=== PATIENT | male | born 1960 | race Caucasian/White ===

== ENCOUNTER 2017-05-10 21:03 | Inpatient (IN) | payer OTHER ==
[~2017-05-10] VITALS: Ht 365.8 cm; Wt 98.5 kg
[2017-05-11] VITALS (9 sets, daily range): BP systolic 120–127; BP diastolic 70–82; PULSE 43–63; RESP 18–20; TEMP 98.3; Ht 365.8 cm; Wt 98.5 kg
[2017-05-11] MEDS ORDERED: ASPIRIN 325 MG TAB PO STA (01:00)
[2017-05-11] MEDS ORDERED: SOD CHLORIDE 0.9% 500 ML IV STA (01:00)
[2017-05-11 01:48] LABS: BASOPHIL # 0.1 10^3/ul (0.0-0.1); BASOPHILS % 0.7 % (0.0-2.0); EOSINOPHILS # 0.2 10^3/ul (0.0-0.5); EOSINOPHILS % 2.3 % (0.0-7.0); HEMATOCRIT 48.4 % (42.0-52.0); HEMOGLOBIN 15.5 g/dl (14.0-18.0); LYMPHOCYTES # 3.4 10^3/ul (0.8-2.9); MEAN CORPUSCULAR HEMOGLOBIN 26.7 pg (29.0-33.0); MEAN CORPUSCULAR VOLUME 83.3 fl (82.0-101.0); MONOCYTE # 0.5 10^3/ul (0.3-0.9); MONOCYTES % 6.3 % (0.0-11.0); NEUTROPHIL # 3.4 10^3/ul (1.6-7.5); NEUTROPHILS % 45.4 % (39.0-77.0); PLATELET COUNT 218 10^3/UL (140-415); RED BLOOD COUNT 5.81 10^6/ul (4.70-6.10); RED CELL DISTRIBUTION WIDTH 13.2 % (11.5-14.5); WHITE BLOOD COUNT 7.4 10^3/ul (4.8-10.8)
--- NOTE | 2017-05-11 01:52 | RADRPT ---
PROCEDURE: XR Chest. CLINICAL INDICATION: Chest pain. TECHNIQUE: Single frontal view of the chest. COMPARISON: None. FINDINGS: The cardiomediastinal silhouette is within normal limits. The lungs are clear. No signs of pleural f luid or pneumothorax are seen. The osseous structures and soft tissues are unremarkable. IMPRESSION: No evidence for active cardiopulmonary disease. RPTAT: [facility] Physician Khalida Date Time Electronically viewed and signed by Physician Khalida on 05/11/2017 01:51 RS/
[2017-05-11 02:03] LABS: ALBUMIN 4.3 g/dl (3.3-4.9); ALBUMIN/GLOBULIN RATIO 1.43; BILIRUBIN,INDIRECT 0.2 mg/dl (0-1.1); BILIRUBIN,TOTAL 0.2 mg/dl (0.2-1.3); CALCIUM 9.9 mg/dl (8.4-10.2); CREATININE 0.89 mg/dl (0.61-1.24); POTASSIUM 3.8 mmol/L (3.5-5.1); TOTAL PROTEIN 7.3 g/dl (6.1-8.1)
[2017-05-11 02:21] LABS: TROPONIN-I 0.014 ng/ml (0.00-0.12)
--- NOTE | 2017-05-11 05:33 | ERA ---
ER Documentation Chief Complaint Date/Time DATE: 05/11/17 TIME: 05:31 Chief Complaint chest pain w/ sob since 2 hrs ago during exercise in gym, w/ stent HPI This is a 56-year-old male who comes in with chest pain shortness breath since 2 hours ago. He developed chest pain while exercising at the gym. He was also short of breath. Complains of diaphoresis. 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 No fevers or chills. No other current complaints. ROS All systems reviewed and are negative except as per history of present illness. Allergies Allergies: Coded Allergies: No Known Allergy (Unverified , 01/12/16) PMhx/Soc History of Surgery: Yes Anesthesia Reaction: No Hx Neurological Disorder: No Hx Respiratory Disorders: No Hx Cardiac Disorders: Yes (mi in 2009, stent placed) Hx Psychiatric Problems: No Hx Miscellaneous Medical Probl: No Hx Alcohol Use: Yes (social) Hx Substance Use: No Hx Tobacco Use: No Smoking Status: Never smoker Physical Exam Vitals Vital Signs Date Time Temp Pulse Resp B/P Pulse Ox O2 Delivery O2 Flow Rate FiO2 05/11/17 00:49 98.1 50 18 129/87 98 05/10/17 21:06 98.2 61 20 153/75 97 Physical Exam Const: [] Head: Atraumatic Eyes: Normal Conjunctiva ENT: Normal External Ears, Nose and Mouth. Neck: Full range of motion..~ No meningismus. Resp: Clear to auscultation bilaterally Cardio: Regular rate and rhythm, no murmurs Abd: Soft, non tender, non distended. Normal bowel sounds Skin: No petechiae or rashes Back: No midline or flank tenderness Ext: No cyanosis, or edema Neur: Awake and alert Psych: Normal Mood and Affect Result Diagram: 05/11/17 0100 05/11/17 0100 Results 24 hrs Laboratory Tests Test 05/11/17 01:00 White Blood Count 7.410^3/ul Red Blood Count 5.8110^6/ul Hemoglobin 15.5g/dl Hematocrit 48.4% Mean Corpuscular Volume 83.3fl Mean Corpuscular Hemoglobin 26.7pg Mean Corpuscular Hemoglobin Concent 32.0g/dl Red Cell Distribution Width 13.2% Platelet Count 00144^3/UL Mean Platelet Volume 11.0fl Neutrophils % 45.4% Lymphocytes % 45.0% Monocytes % 6.3% Eosinophils % 2.3% Basophils % 0.7% Nucleated Red Blood Cells % 0.0/100WBC Neutrophils # 3.410^3/ul Lymphocytes # 3.410^3/ul Monocytes # 0.510^3/ul Eosinophils # 0.210^3/ul Basophils # 0.110^3/ul Nucleated Red Blood Cells # 0.010^3/ul Sodium Level 139mmol/L Potassium Level 3.8mmol/L Chloride Level 103mmol/L Carbon Dioxide Level 29mmol/L Anion Gap 11 Blood Urea Nitrogen 22mg/dl Creatinine 0.89mg/dl Glucose Level 99mg/dl Calcium Level 9.9mg/dl Total Bilirubin 0.2mg/dl Direct Bilirubin 0.00mg/dl Indirect Bilirubin 0.2mg/dl Aspartate Amino Transf (AST/SGOT) 59IU/L Alanine Aminotransferase (ALT/SGPT) 54IU/L Alkaline Phosphatase 61IU/L Troponin I 0.014ng/ml B-Type Natriuretic Peptide 30PG/ML Total Protein 7.3g/dl Albumin 4.3g/dl Globulin 3.00g/dl Albumin/Globulin Ratio 1.43 Current Medications Medications (Trade) Dose Ordered Sig/Lei Route PRN Reason Start Time Stop Time Status Last Admin Dose Admin Sodium Chloride (NS) 500 ml @ 500 mls/hr Q1H STAT IV 05/11/17 01:00 05/11/17 01:59 DC 05/11/17 01:26 Aspirin (Aspirin) 325 mg ONCE STAT PO 05/11/17 01:00 05/11/17 01:01 DC 05/11/17 01:25 Procedures/MDM EKG: Rate/Rhythm: [Normal Sinus Rhythm] QRS, ST, T-waves: [No changes consistent w/ acute ischemia] Impression: [No evidence of ischemia or arrhythmia] Chest X-ray 1V Interpreted by me: Soft Tissue: No acute abnormalities Bones: No acute abnormalities Mediastinum/Cardiac Silhouette/Lungs: [No acute abnormalities] Patient's symptoms are concerning for cardiac cause will require inpatient workup and continuous monitoring. Further w/u for ischemia, arrhythmia, PE or dissection will be deferred to the inpatient team. Accepting Care Team: Current data and ongoing care discussed. Time: . 5 Primary Provider: Hospitalist Consulting: [XOXOXO] Outstanding Data: none Departure Diagnosis: Primary Impression: Chest pain Qualified Code: I20.0 - Unstable angina pectoris Condition: Serious NAN VELEZ May 11, 2017 05:33
[2017-05-11] MEDS ORDERED: CHOL100062 PO (05:41)
[2017-05-11] MEDS ORDERED: METO25TA4 PO (05:41)
[2017-05-11] MEDS ORDERED: SIMV20TA PO (05:41)
[2017-05-11] MEDS ORDERED: MULTI PO (05:41)
[2017-05-11] MEDS ORDERED: CYAN500T46 PO (05:41)
[2017-05-11] MEDS ORDERED: OMEG-135 PO (05:41)
[2017-05-11] MEDS ORDERED: ASPI-664 PO (05:41)
[2017-05-11] MEDS ORDERED: CITRACAL PO (05:41)
[2017-05-11] MEDS ORDERED: VIT1TABL46 PO (05:41)
[2017-05-11] MEDS ORDERED: NITROGLYCERIN (SL) 0.4 MG TAB SL PRN (07:30)
[2017-05-11] MEDS ORDERED: ACETAMINOPHEN 325 MG TAB PO PRN (07:30)
[2017-05-11] MEDS ORDERED: morphine 2 MG INJ IV PRN (07:30)
[2017-05-11] MEDS ORDERED: NACL 0.9% 3 ML SYG IV SCH (07:30)
[2017-05-11] MEDS ORDERED: ONDANSETRON 4 MG INJ IV PRN (07:30)
[2017-05-11 08:46] LABS: BASOPHILS % 0.7 % (0.0-2.0); EOSINOPHILS # 0.1 10^3/ul (0.0-0.5); EOSINOPHILS % 1.9 % (0.0-7.0); HEMATOCRIT 46.6 % (42.0-52.0); HEMOGLOBIN 14.9 g/dl (14.0-18.0); LYMPHOCYTES # 2.7 10^3/ul (0.8-2.9); LYMPHOCYTES % 45.6 % (15.0-51.0); MEAN CORPUSCULAR HEMOGLOBIN 26.5 pg (29.0-33.0); MEAN CORPUSCULAR VOLUME 82.8 fl (82.0-101.0); MEAN PLATELET VOLUME 10.3 fl (7.4-10.4); MONOCYTE # 0.5 10^3/ul (0.3-0.9); MONOCYTES % 8.2 % (0.0-11.0); NEUTROPHIL # 2.6 10^3/ul (1.6-7.5); NEUTROPHILS % 43.3 % (39.0-77.0); PLATELET COUNT 193 10^3/UL (140-415); RED BLOOD COUNT 5.63 10^6/ul (4.70-6.10); RED CELL DISTRIBUTION WIDTH 13.2 % (11.5-14.5); WHITE BLOOD COUNT 5.9 10^3/ul (4.8-10.8)
--- NOTE | 2017-05-11 08:54 | HP ---
Date/Time of Note Date/Time of Note DATE: 05/11/17 TIME: 08:38 Assessment/Plan VTE Prophylaxis VTE Prophylaxis Intervention: ambulation, SCD's Lines/Catheters IV Catheter Type (from Nrs): Saline Lock Assessment/Plan Assessment/Plan 1. Chest pain r/o ACS - Patient has unstable angina which seems to be induced by social stressors - ECHO being performed this am - Will continue on aspirin, BB, and statin - Trop 0.014, serial trops ordered - Will consult Cardiology due to patient past history of IA. Seen by Dr. Salmeron in 2016 for similar complaints - Patient has + fam history with father passing at 62yo from [place] 2. Blood in stool - Sounds hemorrhoidal but patient preferred me not examine him. Was told by PCP he was fine and in need of colonoscopy - Will check FOBT for now - Will give Colace PRN for hard stools - If reoccurring will give Proctosol 3. Diet - Heart healthy 4. DVT prophylaxis - SCDs 5. Code status - Full Code 6. Disposition - Admit to telemetry for cardiac workup >40 mins was spent with patient at time of admission HPI/ROS Admit Date/Time Admit Date/Time May 11, 2017 at 05:37 Hx of Present Illness 56 yo M with PMH IA 2009 s/p stent and HTN presented to ED c/o left sided chest pain that occurred last night during his workout routine. Patient states he was exercising and the sharp pain came on, lasting a few minutes, radiating to his back, and had associated SOB. He states the pain went away with rest and has not reoccurred since last night. With his history of having a IA in the past and father passing at 62 of [place], he decided to come to the ED. He denies any dizziness, nausea, vomiting, or abdominal issues. Patient states he had experienced this same pain one month ago while fighting with his . He feels as if the pain comes about with stress. 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 He usually follows a healthy diet and exercises a few times a week. He does admit to seeing drops of blood in the toilet after BM for the past 6 months. He denies having constipation or straining to have a BM. ROS Constitutional: No chills, No diaphoresis, No fatigue, No febrile, No nausea Eyes: no complaints ENT: no complaints Respiratory: shortness of breath (with chest pain), No cough, No wheezing Cardiovascular: chest pain, No edema, No lightheadedness, No palpitations Gastrointestinal: blood (in toilet after BM) Genitourinary: no complaints Musculoskeletal: no complaints Skin: no complaints Neurologic: no complaints Endocrine: no complaints Lymphatic: no complaints Psychological: no complaints Immunologic: no complaints PMH/Family/Social Past Medical History Medical History: coronary artery disease, hypertension Past Surgical History Past Surgical Hx: no surgical history Family History Significant Family History: heart disease Social History Alcohol Use: none Smoking Status: Unknown if ever smoked Drug Use: none Exam/Review of Systems Vital Signs Vitals Vital Signs Date Time Temp Pulse Resp B/P Pulse Ox O2 Delivery O2 Flow Rate FiO2 05/11/17 07:49 98.3 54 14 114/71 99 Room Air Exam Constitutional: alert, oriented, well developed Psych: nl mood/affect Head: atraumatic, normocephalic Eyes: EOMI, nl conjunctiva, nl sclera ENMT: mucosa pink and moist, nl external ears & nose, nl lips & teeth, nl nasal mucosa & septum Neck: non-tender, supple Respiratory: clear to auscultation, normal air movement, No crackles/rales, No diminished breath sounds, No wheezing Cardiovascular: nl pulses, regular rate and rhythm, No murmurs/extra sounds, No systolic murmur Gastrointestinal: bowel sounds, non-tender, soft, No distended, No rebound or guarding Musculoskeletal: nl extremities to inspection Extremities: normal pulses Neurological: TRAINING ENGINEER II-XII intact, nl mental status, nl speech, nl strength Skin: nl turgor Lymph: nl lymph nodes Labs Result Diagram: 05/11/179905/11/17 010 Medications Medications Current Medications Ondansetron HCl (Zofran Inj) 4 mg Q6H PRN IV NAUSEA AND/OR VOMITING; Start at 07:30 Nitroglycerin (Nitroglycerin (Sl Tab) 0.4 Mg) 1 tab Q5M PRN SL CHEST PAIN; Start 05/11/17 at 07:30 Acetaminophen (Tylenol Tab) 650 mg Q6H PRN PO PAIN LEVEL 1-3 OR FEVER; Start at 07:30 Morphine Sulfate (morphine) 2 mg Q4H PRN IV PAIN LEVEL 7-10; Start 05/11/17 at 07:30 Famotidine (Pepcid) 20 mg Q12 PO ; Start 05/11/17 at 09:00 Aspirin (Halfprin) 81 mg DAILY PO ; Start 05/11/17 at 09:00 Metoprolol Tartrate (Lopressor) 12.5 mg BID PO ; Start 05/11/17 at 09:00 Atorvastatin Calcium (Lipitor) 10 mg DAILY@21 PO ; Start 05/11/17 at 21:00 MEREDITH BLAKE MD May 11, 2017 08:54
[2017-05-11] MEDS: METOPROLOL 25 MG TAB PO SCH ×2 (09:00→21:04)
[2017-05-11 09:12] LABS: ALBUMIN 3.6 g/dl (3.3-4.9); ALBUMIN/GLOBULIN RATIO 1.33; BILIRUBIN,INDIRECT 0.4 mg/dl (0-1.1); BILIRUBIN,TOTAL 0.4 mg/dl (0.2-1.3); CALCIUM 9.3 mg/dl (8.4-10.2); CHOL/HDL RATIO 3.4 RATIO; CREATININE 0.89 mg/dl (0.61-1.24); MAGNESIUM 2.1 mg/dl (1.7-2.5); POTASSIUM 4.5 mmol/L (3.5-5.1); TOTAL PROTEIN 6.3 g/dl (6.1-8.1)
[2017-05-11 09:19] LABS: TROPONIN-I 0.012 ng/ml (0.00-0.12)
[2017-05-11 09:31] LABS: CK-MB 2.36 ng/ml (0.0-2.4)
[2017-05-11 09:38] LABS: THYROID STIMULATING HORMONE 2.24 MIU/L (0.465-4.680)
[2017-05-11] MEDS: ASPIRIN (EC) 81 MG TAB PO SCH (09:49)
[2017-05-11] MEDS: FAMOTIDINE 20 MG TAB PO SCH ×2 (09:50→20:54)
[2017-05-11 15:21] LABS: CREATINE KINASE 1191 IU/L (23-200)
[2017-05-11 15:35] LABS: CK-MB 2.15 ng/ml (0.0-2.4); TROPONIN-I < 0.012 ng/ml (0.00-0.12)
--- NOTE | 2017-05-11 18:23 | RADRPT ---
Echocardiogram Report Patient Name: AILYN ANSARI Gender: Male Date: 1960 Study Date: 11-May-2017 Burr Grinder: [facility] Location: 508 Ref. Physician: KRYSTINA WATERMAN Quality: Adequate Procedures: Transthoracic echocardiogram with complete 2D, M-Mode, and doppler examination. Indications: Chest Pain. 2D/M Mode Doppler Measurement Value Normal Ranges Measurement Value Normal Ranges LVIDd 2D 4.9 3.5 - 5.6 cm AV Peak Bridger 1.3 m/sec LVIDs 2D 3.3 2.1 - 4.1 cm AV Peak PG 6.0 mmHg FS 2D 32.4 % LVOT Peak Bridger 0.8 m/sec LVPWd 2D 1.0 0.6 - 1.1 cm LVOT Peak PG 2.0 mmHg IVSd 2D 1.0 0.6 - 1.1 cm MV E Peak Bridger 0.6 m/sec IVS/LVPW 2D 1.1 MV A Peak Bridger 0.5 m/sec AoR Diam 2D 3.5 2.0 - 3.7 cm MV E/A 1.2 LA/Ao 2D 1 0 - 1 MV Decel Time 197 msec EDV 2D 116.0 cm3 MV E/A 1.2 ESV 2D 35.9 cm3 TR Peak Bridger 2.1 m/sec LA Dimen 2D 3.9 2.3 - 4.0 cm TR Peak PG 18.0 mmHg RVSP 33.0 mmHg Findings Left Ventricle: Normal left ventricular systolic function. Normal left ventricular cavity size. Normal left ventricular wall thickness. Ejection fraction is visually estimated at 55 %. Tissue Doppler/Mitral Doppler indices are within normal limits. Right Ventricle: Normal right ventricular size. Normal right ventricular systolic function. Left Atrium: The left atrium is normal in size. Right Atrium: The right atrium is normal in size. Mitral Valve: Mild mitral leaflet calcification. Mild mitral annular calcification. Trace mitral regurgitation. Aortic Valve: Normal appearance of the aortic valve. No significant aortic stenosis or insufficiency. Tricuspid Valve: Normal appearance of the tricuspid valve. Estimated peak PA systolic pressure 33 mmHg. There is trace tricuspid regurgitation. Pulmonic Valve: Pulmonic valve not well visualized. There is trace pulmonic regurgitation. Pericardium: Normal pericardium with no significant pericardial effusion. Aorta: Normal aortic root. IVC: Dilated inferior vena cava with poor inspiratory collapse consistent with elevated right atrial pressures. Conclusions 1.Normal left ventricular systolic function. Normal left ventricular cavity size. Normal left ventricular wall thickness. Ejection fraction is visually estimated at 55 %. Tissue Doppler/Mitral Doppler indices are within normal limits. 2.Mild mitral leaflet calcification. Mild mitral annular calcification. Trace mitral regurgitation. 3.Normal appearance of the tricuspid valve. Estimated peak PA systolic pressure 33 mmHg. There is trace tricuspid regurgitation. 4.Pulmonic valve not well visualized. There is trace pulmonic regurgitation. Electronically Signed By: Eduardo Perez 11-May-2017 18:23:17 -0700 Patient Name: AILYN ANSARI Study Date: 11-May-2017 [id number]
[2017-05-11] MEDS: ATORVASTATIN 10 MG TAB PO SCH (20:54)
[2017-05-12] VITALS (13 sets, daily range): BP systolic 112–125; BP diastolic 63–88; PULSE 48–62; RESP 16–20
--- NOTE | 2017-05-12 07:12 | CONS ---
DATE OF ADMISSION: 05/11/2017 DATE OF CONSULTATION: 05/11/2017 REASON FOR CONSULTATION: Chest pain. Assess for acute cardiac syndrome. REFERRING PHYSICIAN: Dr. Stone from the hospital service. HISTORY OF PRESENT ILLNESS: Mr. Hercules is a very pleasant 56-year- old male with a history of hypertension, prior myocardial infarction, coronary disease status post PTCA and stent placement in 2009 who initially presented to with left-sided substernal chest pain described as a stabbing sensation occurring at rest, awakens from sleep. Upon arrival, initially, temperature 98.2, blood pressure 152/75, pulse 60, respiratory 20, sating 93 percent. LABORATORY AND DIAGNOSTIC STUDIES: White count 7.4, hemoglobin 51.5, platelet count 218. Sodium 139, potassium 3.8, creatinine 0.8, BUN 22, AST 59, AST 54. Troponin negative. BNP of 30, LDL of 86, HDL 42, troponin 0.014, negative. The patient had a chest x-ray revealing no evidence of acute cardiopulmonary abnormalities. The patient's electrocardiogram revealed sinus rhythm, rate of [address]-T abnormalities. Patient was subsequently admitted to the floor. Treated with aspirin, beta keegan and thus far has had 2nd troponin negative, 2 negative troponins. PAST MEDICAL HISTORY: As above in HPI. MEDICATION: Hospital: 1. Lipitor 10 mg daily. 2. Pepcid 20 mg q.12. 3. Aspirin 81 mg daily. 4. Lopressor 12.5 mg p.o. b.i.d. 5. . 6. Nitroglycerin p.r.n. 7. Morphine p.r.n. 8. Tylenol p.r.n. ALLERGIES: NO KNOWN DRUG ALLERGIES. SOCIAL HISTORY: No tobacco. Social EtOH. No illicit drug use. FAMILY HISTORY: Negative for sudden cardiac or early CD. REVIEW OF SYSTEMS: As above in HPI. CONSTITUTIONAL: No fevers, chills. RESPIRATORY: No current shortness of breath. CARDIOVASCULAR: Chest pain. GASTROINTESTINAL: No vomiting. GENITOURINARY: No hematuria. MUSCULOSKELETAL: Degenerative joint disease. PSYCH: The patient has depression. NEUROLOGIC: No documented CVA. PHYSICAL EXAMINATION: VITAL SIGNS: Temperature of 97.9, blood pressure 122/80, pulse 50, respiration 18, sating 93 percent. GENERAL: The patient is alert, awake, no acute distress. NECK: JVP, approximately 8 cm large. CHEST: . HEART: Regular rate and rhythm. Normal S1, S2. 1/6 systolic murmur. Nondisplaced PMI. ABDOMEN: Positive bowel sounds. Soft. EXTREMITIES: No pitting edema. 1+ pulses. Bilateral posterior upper flaps, LABORATORY: As above in HPI with most recent today: Sodium 140, potassium 4.5, creatinine 0.9, BUN 19, troponin negative x2. White count 5.9, hemoglobin 40.9, platelet count 193. IMAGING STUDIES: As above in HPI. No further images reviewed. EEG as above in HPI. IMPRESSION: 1. Chest pain. Assess for acute coronary syndrome, with negative troponins x2. Somewhat atypical symptomatology for cardiac etiology at this time, but history of prior stent placement in multiple years prior and EKG abnormalities. 2. . Assess for acute coronary syndrome. Nonspecific ST and T-wave abnormalities. 3. Bradycardia with stable blood pressure. 4. Hypertension, under reasonable control. 5. Dyslipidemia. 6. History of PTCA and stent placement of 2009. RECOMMENDATIONS: 1. At this time, would maintain patient on telemetry, monitoring to follow rhythm rates closely. 2. Complete patient's RO for infarction. The patient's chest pain was not due to any acute coronary syndromes, acute myocardial infarction. 3. Continue the patient's current aspirin statin as tolerated beta keegan as tolerated only. 4. Check a TSH, subclinical hypothyroidism the bradyarrhythmias. 5. Continue to check serial EKGs, assess recently changes. EKG in the morning. EKG for any complaint of chest or change in rhythm. Keep the patient p.r.n. sublingual nitroglycerin for current chest pain. 6. Will follow patient's 2D echo in order for assessment of ejection fraction, wall motion, and major abnormalities and patient will undergo possible stress testing in the a.m. Thanks for allowing me to take part in the care of this patient. I will continue to follow patient closely with you. Dictated By: Edaurdo Perez MD /olivier/neda /Document#: [id number] ; Dr. Stone
[2017-05-12 08:19] LABS: BASOPHIL # 0.1 10^3/ul (0.0-0.1); EOSINOPHILS # 0.1 10^3/ul (0.0-0.5); EOSINOPHILS % 1.8 % (0.0-7.0); HEMATOCRIT 49.2 % (42.0-52.0); HEMOGLOBIN 15.6 g/dl (14.0-18.0); LYMPHOCYTES # 3.2 10^3/ul (0.8-2.9); LYMPHOCYTES % 47.1 % (15.0-51.0); MEAN CORPUSCULAR HEMOGLOBIN 25.9 pg (29.0-33.0); MEAN CORPUSCULAR HGB CONC 31.7 g/dl (32.0-37.0); MEAN CORPUSCULAR VOLUME 81.6 fl (82.0-101.0); MEAN PLATELET VOLUME 10.8 fl (7.4-10.4); MONOCYTE # 0.5 10^3/ul (0.3-0.9); NEUTROPHIL # 2.8 10^3/ul (1.6-7.5); NEUTROPHILS % 41.8 % (39.0-77.0); PLATELET COUNT 229 10^3/UL (140-415); RED BLOOD COUNT 6.03 10^6/ul (4.70-6.10); RED CELL DISTRIBUTION WIDTH 13.5 % (11.5-14.5); WHITE BLOOD COUNT 6.8 10^3/ul (4.8-10.8)
[2017-05-12 08:50] LABS: ALBUMIN 4.2 g/dl (3.3-4.9); CALCIUM 9.6 mg/dl (8.4-10.2); CREATININE 0.89 mg/dl (0.61-1.24); POTASSIUM 4.3 mmol/L (3.5-5.1)
[2017-05-12] MEDS: METOPROLOL 25 MG TAB PO SCH ×2 (09:00→21:00)
[2017-05-12] MEDS: FAMOTIDINE 20 MG TAB PO SCH ×2 (09:00→21:18)
--- NOTE | 2017-05-12 10:20 | PN ---
Date/Time of Note Date/Time of Note DATE: 05/12/17 TIME: 10:20 Assessment/Plan VTE Prophylaxis VTE Prophylaxis Intervention: heparin Lines/Catheters IV Catheter Type (from Nrs): Saline Lock Assessment/Plan Assessment/Plan 1. Chest pain r/o ACS - Patient has unstable angina which seems to be induced by social stressors - ECHO being performed this am which shows EF 50% with trace NE, TR, MR - Will continue on aspirin, BB, and statin - Trop 0.014, serial trops ordered - Cardiology consulted and recommendations appreciated. Plans for stress test today - Patient has + fam history with father passing at 62yo from [place] 2. Blood in stool - Sounds hemorrhoidal but patient preferred me not examine him. Was told by PCP he was fine and in need of colonoscopy - FOBT negative - Will give Colace PRN for hard stools - If reoccurring will give Proctosol 3. Elevated CK - ? exercise induced rhabdo - will hydrate with IVF 24 hours and reassess Subjective 24 Hr Interval Summary Free Text/Dictation Patient denies any further episodes of chest pain and no new complaints. No acute overnight events. Plans for stress test today per Cardiology. Exam/Review of Systems Vital Signs Vitals Vital Signs Date Time Temp Pulse Resp B/P Pulse Ox O2 Delivery O2 Flow Rate FiO2 05/12/17 08:15 54 05/12/17 07:45 98.1 16 112/74 100 05/11/17 07:49 Room Air Intake and Output 05/11/17 05/11/17 05/12/17 15:00 23:00 07:00 Intake Total 300 ml Balance 300 ml Exam Constitutional: alert, oriented, well developed Neck: non-tender, supple Respiratory: clear to auscultation, normal air movement, No crackles/rales, No diminished breath sounds, No wheezing Cardiovascular: nl pulses, regular rate and rhythm, No murmurs/extra sounds, No systolic murmur Gastrointestinal: bowel sounds, non-tender, soft, No distended, No rebound or guarding Extremities: normal pulses Results Result Diagram: 05/12/1772205/12/17722 Results 24 hrs Laboratory Tests Test 05/11/17 14:30 05/11/17 14:52 05/12/17 07:23 Creatine Kinase 1191 H Creatine Kinase Index 0.2 Creatinine Kinase MB (Mass) 2.15 Troponin I < 0.012 Stool Occult Blood NEGATIVE White Blood Count 6.8 Red Blood Count 6.03 Hemoglobin 15.6 Hematocrit 49.2 Mean Corpuscular Volume 81.6 L Mean Corpuscular Hemoglobin 25.9 L Mean Corpuscular Hemoglobin Concent 31.7 L Red Cell Distribution Width 13.5 Platelet Count 229 Mean Platelet Volume 10.8 H Neutrophils % 41.8 Lymphocytes % 47.1 Monocytes % 8.0 Eosinophils % 1.8 Basophils % 1.0 Nucleated Red Blood Cells % 0.0 Neutrophils # 2.8 Lymphocytes # 3.2 H Monocytes # 0.5 Eosinophils # 0.1 Basophils # 0.1 Nucleated Red Blood Cells # 0.0 Sodium Level 142 Potassium Level 4.3 Chloride Level 105 Carbon Dioxide Level 28 Anion Gap 13 Blood Urea Nitrogen 16 Creatinine 0.89 Glucose Level 98 Calcium Level 9.6 Phosphorus Level 4.0 Magnesium Level 2.0 Albumin 4.2 Medications Medications Current Medications Ondansetron HCl (Zofran Inj) 4 mg Q6H PRN IV NAUSEA AND/OR VOMITING; Start at 07:30 Nitroglycerin (Nitroglycerin (Sl Tab) 0.4 Mg) 1 tab Q5M PRN SL CHEST PAIN; Start 05/11/17 at 07:30 Acetaminophen (Tylenol Tab) 650 mg Q6H PRN PO PAIN LEVEL 1-3 OR FEVER Last administered on 05/11/17 21:04; Admin Dose 650 MG; Start 05/11/17 at 07:30 Morphine Sulfate (morphine) 2 mg Q4H PRN IV PAIN LEVEL 7-10; Start 05/11/17 at 07:30 Famotidine (Pepcid) 20 mg Q12 PO Last administered on 05/11/17 20:54; Admin Dose 20 MG; Start 05/11/17 at 09:00 Aspirin (Halfprin) 81 mg DAILY PO Last administered on 05/11/17 09:49; Admin Dose 81 MG; Start 05/11/17 at 09:00 Metoprolol Tartrate (Lopressor) 12.5 mg BID PO Last administered on 05/11/17 21:04; Admin Dose 12.5 MG; Start 05/11/17 at 09:00 Atorvastatin Calcium (Lipitor) 10 mg DAILY@21 PO Last administered on 20:54; Admin Dose 10 MG; Start 05/11/17 at 21:00 MEREDITH BLAKE MD May 12, 2017 10:20
[2017-05-12] MEDS: SOD CHLORIDE 0.9% 1,000 ML IV SCH ×3 (10:30→20:28)
--- NOTE | 2017-05-12 12:34 | CONS ---
Date/Time of Note Date/Time of Note DATE: 05/12/17 TIME: 12:31 Assessment/Plan Assessment/Plan Chief Complaint/Hosp Course IMPRESSION: 1. Chest pain. Assess for acute coronary syndrome, with negative troponins x2. Somewhat atypical symptomatology for cardiac etiology at this time, but history of prior stent placement in multiple years prior and EKG abnormalities.-NL EF by echo 2. Abnl ecg- Assess for acute coronary syndrome. Nonspecific ST and T-wave abnormalities.-negative trop x 3 3. Bradycardia with stable blood pressure.-NL TSH tis admit 4. Hypertension, under reasonable control. 5. Dyslipidemia. 6. History of PTCA and stent placement of 2009. Recc: -Tele -low dose BB as tolerated only -Continue asa/statin -Lexiscan stress test today Problems: Consultation Date/Type/Reason Admit Date/Time May 11, 2017 at 05:37 Initial Consult Date 05/11/2017 Type of Consultation: cardiology Reason for Consultation chest pain Referring Provider: KRYSTINA WATERMAN Exam/Review of Systems Vital Signs Vitals Vital Signs Date Time Temp Pulse Resp B/P Pulse Ox O2 Delivery O2 Flow Rate FiO2 05/12/17 12:10 56 05/12/17 11:16 98.0 16 125/88 97 05/11/17 07:49 Room Air Intake and Output 05/11/17 05/11/17 05/12/17 15:00 23:00 07:00 Intake Total 300 ml Balance 300 ml Exam Review of Systems: CONSTITUTIONAL: No fevers, chills. PULMONARY: No sob CARDIOVASCULAR: intermittent chest pain GASTROINTESTINAL: No nausea/vomiting. GENITOURINARY: No hematuria/dysuria. MUSCULOSKELETAL: No myagias/arthalgias. PSYCHIATRIC: The patient denies depression. NEUROLOGIC: No weakness Constitutional: alert Psych: no complaints Head: normocephalic ENMT: mucosa pink and moist Neck: jvd (9 cm water), supple Respiratory: clear to auscultation Cardiovascular: other (bradycardic regular rhtyhm) Gastrointestinal: non-tender, soft Musculoskeletal: muscle tone (normal) Extremities: edema (none) Neurological: other (NO focal deficits) Results Result Diagram: 05/12/17 0723 05/12/17 0723 Results 24 hrs Laboratory Tests Test 05/11/17 14:30 05/11/17 14:52 05/12/17 07:23 Creatine Kinase 1191 H Creatine Kinase Index 0.2 Creatinine Kinase MB (Mass) 2.15 Troponin I < 0.012 Stool Occult Blood NEGATIVE White Blood Count 6.8 Red Blood Count 6.03 Hemoglobin 15.6 Hematocrit 49.2 Mean Corpuscular Volume 81.6 L Mean Corpuscular Hemoglobin 25.9 L Mean Corpuscular Hemoglobin Concent 31.7 L Red Cell Distribution Width 13.5 Platelet Count 229 Mean Platelet Volume 10.8 H Neutrophils % 41.8 Lymphocytes % 47.1 Monocytes % 8.0 Eosinophils % 1.8 Basophils % 1.0 Nucleated Red Blood Cells % 0.0 Neutrophils # 2.8 Lymphocytes # 3.2 H Monocytes # 0.5 Eosinophils # 0.1 Basophils # 0.1 Nucleated Red Blood Cells # 0.0 Sodium Level 142 Potassium Level 4.3 Chloride Level 105 Carbon Dioxide Level 28 Anion Gap 13 Blood Urea Nitrogen 16 Creatinine 0.89 Glucose Level 98 Calcium Level 9.6 Phosphorus Level 4.0 Magnesium Level 2.0 Albumin 4.2 Medications Medications Current Medications Ondansetron HCl (Zofran Inj) 4 mg Q6H PRN IV NAUSEA AND/OR VOMITING; Start at 07:30 Nitroglycerin (Nitroglycerin (Sl Tab) 0.4 Mg) 1 tab Q5M PRN SL CHEST PAIN; Start 05/11/17 at 07:30 Acetaminophen (Tylenol Tab) 650 mg Q6H PRN PO PAIN LEVEL 1-3 OR FEVER Last administered on 05/11/17 21:04; Admin Dose 650 MG; Start 05/11/17 at 07:30 Morphine Sulfate (morphine) 2 mg Q4H PRN IV PAIN LEVEL 7-10; Start 05/11/17 at 07:30 Famotidine (Pepcid) 20 mg Q12 PO Last administered on 05/11/17 20:54; Admin Dose 20 MG; Start 05/11/17 at 09:00 Aspirin (Halfprin) 81 mg DAILY PO Last administered on 05/11/17 09:49; Admin Dose 81 MG; Start 05/11/17 at 09:00 Metoprolol Tartrate (Lopressor) 12.5 mg BID PO Last administered on 05/11/17 21:04; Admin Dose 12.5 MG; Start 05/11/17 at 09:00 Atorvastatin Calcium 10 mg 10 mg DAILY@21 PO Last administered on 05/11/17t 20: 54; Admin Dose 10 MG; Start 05/11/17 at 21:00 Sodium Chloride (NS) 1,000 ml @ 100 mls/hr Q10H IV ; Start 05/12/17 at 10:30; Stop 05/13/17 at 10:30 AYUSH LEDESMA May 12, 2017 12:34
[2017-05-12] MEDS ORDERED: REGADENOSON 0.4 MG/5 ML SYG ONE (12:38)
[2017-05-12] MEDS: ASPIRIN (EC) 81 MG TAB PO SCH (14:47)
--- NOTE | 2017-05-12 15:43 | RADRPT ---
PROCEDURE: Lexiscan myocardial perfusion study CLINICAL INDICATION: 56 -year-old patient with coronary artery disease, complaining of chest pain. TECHNIQUE: Lexiscan 0.4 mg intravenously separate acquisition gated myocardial perfusion SPECT usi ng Tc 99m Myoview approximately 30.0 mCi intravenously at stress and Tc-99m Myoview, approximately 1 0.0 mCi intravenously at rest was performed using the rest/stress sequence. Poststress Myoview SPEC T images were obtained in the supine position. COMPARISON: January 12, 2016. FINDINGS: Perfusion images reveal unchanged nonreversible perfusion defect in the inferoapical, inferior and i nferoseptal mike. There is no evidence of new perfusion defects. Lexiscan post stress gated SPECT images demonstrate no wall motion abnormalities. IMPRESSION: 1. The type and distribution of the scintigraphic abnormalities are most consistent with an unchang ed nonreversible perfusion defect in the inferoapical, inferior and inferoseptal mike. 2. No new wall motion abnormalities. 3. The left ventricle ejection fraction at stress is 52% (prior EF was 58%). A call report was made to Dr. Perez at 03:42 p.m. on May 12, 2017. RPTAT: HH .Zuleyka Sloorzano MD, Date Time Electronically viewed and signed by .Zuleyka Solorzano MD, on 05/12/2017 15:43 .L/
--- NOTE | 2017-05-12 17:12 | CARRPT ---
DATE OF PROCEDURE: 05/12/2017 REASON FOR STRESS TEST: Chest pain, assess for ischemia. Patient has history of stents. REQUESTING PHYSICIAN: Dr. Mitchell from the Hospital [facility]. PROCEDURE: Lexiscan Cardiolite stress test, electrocardiogram portion. VITAL SIGNS: Baseline vital signs electrocardiogram, pulse 47, blood pressure 138/80. ELECTROCARDIOGRAM: Electrocardiogram revealed sinus bradycardia, 47, normal axis, normal intervals, with lateral T-wave inversions. PROCEDURE: Patient underwent standard Lexiscan infusion for 10 seconds followed by radiotracer. Patient's test was stopped due to completion of protocol. Maximal achieved blood pressure during the test, 130/64. Maximum heart rate during test 77. ECG FINDINGS: The patient did not develop any new Lexiscan induced ST changes from baseline abnormalities. No documented PVCs. SYMPTOMS: The patient had mild shortness of breath, which resolved during recovery. No chest pain. IMPRESSION: 1. No Lexiscan induced ST or T wave changes from baseline abnormalities with diagnostic cardiac ischemia. 2. Complaints of shortness of breath during stress test, resolved during recovery. 3. No chest pain during stress test. 4. No documented premature ventricular contractions (PVCs) during stress test. 5. Report of nuclear images to follow in separate dictation. Dictated By: Eduardo Perez MD /gloriat/lashay /Document#: [id number] CC: Garrett Mitchell MD;*End*
[2017-05-12] MEDS: ATORVASTATIN 10 MG TAB PO SCH (21:18)
[2017-05-13] VITALS (9 sets, daily range): BP systolic 118–134; BP diastolic 67–87; PULSE 48–73; RESP 16–20
[2017-05-13] MEDS: SOD CHLORIDE 0.9% 1,000 ML IV SCH (06:06)
[2017-05-13 07:50] LABS: BASOPHIL # 0.1 10^3/ul (0.0-0.1); BASOPHILS % 0.8 % (0.0-2.0); EOSINOPHILS # 0.1 10^3/ul (0.0-0.5); EOSINOPHILS % 1.6 % (0.0-7.0); HEMATOCRIT 50.4 % (42.0-52.0); HEMOGLOBIN 15.6 g/dl (14.0-18.0); LYMPHOCYTES # 2.7 10^3/ul (0.8-2.9); LYMPHOCYTES % 42.7 % (15.0-51.0); MEAN CORPUSCULAR HEMOGLOBIN 25.7 pg (29.0-33.0); MEAN CORPUSCULAR VOLUME 83.2 fl (82.0-101.0); MEAN PLATELET VOLUME 10.4 fl (7.4-10.4); MONOCYTE # 0.5 10^3/ul (0.3-0.9); MONOCYTES % 7.5 % (0.0-11.0); NEUTROPHILS % 47.1 % (39.0-77.0); PLATELET COUNT 206 10^3/UL (140-415); RED BLOOD COUNT 6.06 10^6/ul (4.70-6.10); RED CELL DISTRIBUTION WIDTH 13.6 % (11.5-14.5); WHITE BLOOD COUNT 6.3 10^3/ul (4.8-10.8)
[2017-05-13 08:13] LABS: CALCIUM 9.6 mg/dl (8.4-10.2); CREATININE 0.85 mg/dl (0.61-1.24); MAGNESIUM 1.9 mg/dl (1.7-2.5); PHOSPHORUS 3.6 mg/dl (2.5-4.9); POTASSIUM 4.7 mmol/L (3.5-5.1)
[2017-05-13] MEDS: METOPROLOL 25 MG TAB PO SCH (09:00)
[2017-05-13] MEDS: ASPIRIN (EC) 81 MG TAB PO SCH (10:04)
[2017-05-13] MEDS: FAMOTIDINE 20 MG TAB PO SCH (10:04)
--- NOTE | 2017-05-13 13:59 | CONS ---
Date/Time of Note Date/Time of Note DATE: 05/13/17 TIME: 13:54 Assessment/Plan Assessment/Plan Chief Complaint/Hosp Course IMPRESSION: 1. Chest pain. Assess for acute coronary syndrome, with negative troponins x2. Somewhat atypical symptomatology for cardiac etiology at this time, but history of prior stent placement in multiple years prior and EKG abnormalities.-NL EF by echo/ Now s/ p lexiscan with only scar and no ischemia/EF52% 2. Abnl ecg- Assess for acute coronary syndrome. Nonspecific ST and T-wave abnormalities.-negative trop x 3 3. Bradycardia with stable blood pressure.-NL TSH tis admit 4. Hypertension, under reasonable control. 5. Dyslipidemia. 6. History of PTCA and stent placement of 2009. Recc: -Tele -Contineu asa/statin -start lwo dose oral nitrates -D/C BB given bradycardia -d/c planning with outpatient f/u and LHC for recurrent ongoing sx. patient given my card for contact info Problems: Consultation Date/Type/Reason Admit Date/Time May 11, 2017 at 05:37 Initial Consult Date 05/11/2017 Type of Consultation: cardiology Reason for Consultation chest pain Referring Provider: KRYSTINA WATERMAN Exam/Review of Systems Vital Signs Vitals Vital Signs Date Time Temp Pulse Resp B/P Pulse Ox O2 Delivery O2 Flow Rate FiO2 05/13/17 12:09 57 05/13/17 11:50 98.4 16 129/76 96 05/11/17 07:49 Room Air Exam Review of Systems: CONSTITUTIONAL: No fevers, chills. PULMONARY: No sob CARDIOVASCULAR: No recurrent chest pain/palpitations GASTROINTESTINAL: No nausea/vomiting. GENITOURINARY: No hematuria/dysuria. MUSCULOSKELETAL: No myagias/arthalgias. PSYCHIATRIC: The patient denies depression. NEUROLOGIC: No weakness Constitutional: alert, oriented Psych: no complaints Head: normocephalic ENMT: mucosa pink and moist Neck: jvd (8-9 cm water), supple Respiratory: diminished breath sounds Cardiovascular: regular rate and rhythm Gastrointestinal: non-tender, soft Musculoskeletal: muscle tone (normal) Extremities: edema (none) Neurological: other (No focal deficits) Results Result Diagram: 05/13/17 0723 05/13/17 0723 Results 24 hrs Laboratory Tests Test 05/13/17 07:23 White Blood Count 6.3 Red Blood Count 6.06 Hemoglobin 15.6 Hematocrit 50.4 Mean Corpuscular Volume 83.2 Mean Corpuscular Hemoglobin 25.7 L Mean Corpuscular Hemoglobin Concent 31.0 L Red Cell Distribution Width 13.6 Platelet Count 206 Mean Platelet Volume 10.4 Neutrophils % 47.1 Lymphocytes % 42.7 Monocytes % 7.5 Eosinophils % 1.6 Basophils % 0.8 Nucleated Red Blood Cells % 0.0 Neutrophils # 3.0 Lymphocytes # 2.7 Monocytes # 0.5 Eosinophils # 0.1 Basophils # 0.1 Nucleated Red Blood Cells # 0.0 Sodium Level 140 Potassium Level 4.7 Chloride Level 107 Carbon Dioxide Level 28 Anion Gap 10 Blood Urea Nitrogen 16 Creatinine 0.85 Glucose Level 97 Calcium Level 9.6 Phosphorus Level 3.6 Magnesium Level 1.9 Creatine Kinase 920 H Albumin 4.0 Medications Medications Current Medications Ondansetron HCl (Zofran Inj) 4 mg Q6H PRN IV NAUSEA AND/OR VOMITING; Start at 07:30 Nitroglycerin (Nitroglycerin (Sl Tab) 0.4 Mg) 1 tab Q5M PRN SL CHEST PAIN; Start 05/11/17 at 07:30 Acetaminophen (Tylenol Tab) 650 mg Q6H PRN PO PAIN LEVEL 1-3 OR FEVER Last administered on 05/11/17 21:04; Admin Dose 650 MG; Start 05/11/17 at 07:30 Morphine Sulfate (morphine) 2 mg Q4H PRN IV PAIN LEVEL 7-10; Start 05/11/17 at 07:30 Famotidine (Pepcid) 20 mg Q12 PO Last administered on 05/13/17 10:04; Admin Dose 20 MG; Start 05/11/17 at 09:00 Aspirin (Halfprin) 81 mg DAILY PO Last administered on 05/13/17 10:04; Admin Dose 81 MG; Start 05/11/17 at 09:00 Metoprolol Tartrate (Lopressor) 12.5 mg BID PO Last administered on 05/11/17 21:04; Admin Dose 12.5 MG; Start 05/11/17 at 09:00 Atorvastatin Calcium (Lipitor) 10 mg DAILY@21 PO Last administered on 21:18; Admin Dose 10 MG; Start 05/11/17 at 21:00 AYUSH LEDESMA May 13, 2017 13:59
--- NOTE | 2017-05-13 14:58 | PN ---
Date/Time of Note Date/Time of Note DATE: 05/13/17 TIME: 14:47 Assessment/Plan VTE Prophylaxis VTE Prophylaxis Intervention: SCD's Lines/Catheters IV Catheter Type (from Nrs): Saline Lock Assessment/Plan Assessment/Plan 1. Chest pain, ACS ruled out - Cardiology on board and consultation appreciated - NL EF by echo/Now s/p Lexiscan with only scar and no ischemia/EF52% - Patient has unstable angina which seems to be induced by social stressors - Will continue on aspirin and statin - Serial troponins negative. - Will start on low dose nitrates - Patient has + fam history with father passing at 64 yo from [place] 2. Elevated CK - ? exercise induced rhabdo - improving. encouraged to continue hydration 3. Disposition - Cleared by Cardiology for discharge with outpatient follow up Subjective 24 Hr Interval Summary Free Text/Dictation Patient states he's doing well and denies any further episodes of chest pain, shortness of breath, dizziness, nausea, vomiting, or abdominal issues. Exam/Review of Systems Vital Signs Vitals Vital Signs Date Time Temp Pulse Resp B/P Pulse Ox O2 Delivery O2 Flow Rate FiO2 05/13/17 12:09 57 05/13/17 11:50 98.4 16 129/76 96 05/11/17 07:49 Room Air Exam General: NAD, awake, alert CVS: regular rhythm, bradycardia. no murmurs Lungs: CTA b/l. no wheezes or rhonchi Abd: soft, NT, ND, no rebound or guarding Ext: moving all extremities, no edema, clubbing, or cyanosis Results Result Diagram: 05/13/1723 05/13/17 0723 Results 24 hrs Laboratory Tests Test 05/13/17 07:23 White Blood Count 6.3 Red Blood Count 6.06 Hemoglobin 15.6 Hematocrit 50.4 Mean Corpuscular Volume 83.2 Mean Corpuscular Hemoglobin 25.7 L Mean Corpuscular Hemoglobin Concent 31.0 L Red Cell Distribution Width 13.6 Platelet Count 206 Mean Platelet Volume 10.4 Neutrophils % 47.1 Lymphocytes % 42.7 Monocytes % 7.5 Eosinophils % 1.6 Basophils % 0.8 Nucleated Red Blood Cells % 0.0 Neutrophils # 3.0 Lymphocytes # 2.7 Monocytes # 0.5 Eosinophils # 0.1 Basophils # 0.1 Nucleated Red Blood Cells # 0.0 Sodium Level 140 Potassium Level 4.7 Chloride Level 107 Carbon Dioxide Level 28 Anion Gap 10 Blood Urea Nitrogen 16 Creatinine 0.85 Glucose Level 97 Calcium Level 9.6 Phosphorus Level 3.6 Magnesium Level 1.9 Creatine Kinase 920 H Albumin 4.0 Medications Medications Current Medications Ondansetron HCl (Zofran Inj) 4 mg Q6H PRN IV NAUSEA AND/OR VOMITING; Start at 07:30 Nitroglycerin (Nitroglycerin (Sl Tab) 0.4 Mg) 1 tab Q5M PRN SL CHEST PAIN; Start 05/11/17 at 07:30 Acetaminophen (Tylenol Tab) 650 mg Q6H PRN PO PAIN LEVEL 1-3 OR FEVER Last administered on 05/11/17 21:04; Admin Dose 650 MG; Start 05/11/17 at 07:30 Morphine Sulfate (morphine) 2 mg Q4H PRN IV PAIN LEVEL 7-10; Start 05/11/17 at 07:30 Famotidine (Pepcid) 20 mg Q12 PO Last administered on 05/13/17 10:04; Admin Dose 20 MG; Start 05/11/17 at 09:00 Aspirin (Halfprin) 81 mg DAILY PO Last administered on 05/13/17 10:04; Admin Dose 81 MG; Start 05/11/17 at 09:00 Atorvastatin Calcium (Lipitor) 10 mg DAILY@21 PO Last administered on 21:18; Admin Dose 10 MG; Start 05/11/17 at 21:00 Isosorbide Mononitrate (Imdur) 30 mg DAILY PO ; Start 05/14/17 at 09:00 MEREDITH BLAKE MD May 13, 2017 14:58
[2017-05-13] MEDS ORDERED: ISOS30TA5 PO (15:07)
[2017-05-13] MEDS ORDERED: ATOR10TA65 PO (15:07)
--- NOTE | 2017-05-13 15:14 | PDOCDIS ---
Discharge Instructions DIAGNOSIS Discharge Diagnosis 1. Acute chest pain CONDITION Patient Condition: Good HOME CARE INSTRUCTIONS: Diet Instructions: Low Fat /CholesterolSpecial Diet: CARDIAC ACTIVITY: Activity Restrictions: No Restrictions FOLLOW UP/APPOINTMENTS Follow-up Plan 1. Take medications as prescribed. Discontinue your Metoprolol and Simvastatin and take Lipitor, Isosorbide, and Aspirin daily 2. Follow up with Dr. Perez and if chest pain reoccurs, return to the ED. 3. Follow a diet rich in fruits and vegetables 4. You were cleared by Cardiology for discharge home. Your studies showed that your heart is pumping normally (normal ejection fraction) and stress test showed only scarring and no ischemia. You should pursue colonoscopy as an outpatient for preventative measures. REFERRALS Other Referrals Eduardo Perez MD Specialty: Cardiology Office Address [address] [place] [address] Office SCHOOL/WORK RELEASE May return to School/Work on: May 16, 2017 May return to School/Work with: No Restrictions MEREDITH BLAKE MD May 13, 2017 15:14
--- NOTE | 2017-05-13 15:23 | DS ---
Date/Time of Note Date/Time of Note DATE: 05/13/17 TIME: 15:23 Discharge Summary Admission/Discharge Info Admit Date/Time May 11, 2017 at 05:37 Discharge Date/Time Discharge Diagnosis 1. Acute chest pain, ACS ruled out Patient Condition: Good Consults Cardiology, Dr. Perez Hx of Present Illness 56 yo M with PMH [place] 2009 s/p stent and HTN presented to ED c/o left sided chest pain that occurred last night during his workout routine. Patient states he was exercising and the sharp pain came on, lasting a few minutes, radiating to his back, and had associated SOB. He states the pain went away with rest and has not reoccurred since last night. With his history of having a [place] in the past and father passing at 64 of [place], he decided to come to the ED. He denies any dizziness, nausea, vomiting, or abdominal issues. Patient states he had experienced this same pain one month ago while fighting with his . He feels as if the pain comes about with stress. 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 He usually follows a healthy diet and exercises a few times a week. He does admit to seeing drops of blood in the toilet after BM for the past 6 months. He denies having constipation or straining to have a BM. Hospital Course Patient was admitted to telemetry and work up was performed for chest pain. Cardiology was consulted and ECHO was performed which showed normal EF. EKG showed no acute abnormalities and troponins were negative. Patient underwent lexiscan which showed only scarring and no ischemia with EF 52%. Patient had bradycardia but being atheletic is baseline and was asymptomatic. Patient was counseled about proper diet, exercise, and destressing techniques. He was also encouraged to pursue having colonoscopy performed due to history of blood after bowel movements. Most likely hemorrhoidal and FOBT was negative. Patient was continued on aspirin, statin, and started on low dose oral nitrates. His beta keegan was discontinued due to bradycardia. Patient was instructed to follow up with Dr. Perez as outpatient and if symptoms reoccur will need left heart catheterization for further evaluation. Patient was discharge home after cleared by cardiology. PROCEDURE: Lexiscan myocardial perfusion study TECHNIQUE: Lexiscan 0.4 mg intravenously separate acquisition gated myocardial perfusion SPECT using Tc 99m Myoview approximately 30.0 mCi intravenously at stress and Tc-99m Myoview, approximately 10.0 mCi intravenously at rest was performed using the rest/stress sequence. Poststress Myoview SPECT images were obtained in the supine position. FINDINGS: Perfusion images reveal unchanged nonreversible perfusion defect in the inferoapical, inferior and inferoseptal mike. There is no evidence of new perfusion defects. Lexiscan post stress gated SPECT images demonstrate no wall motion abnormalities. IMPRESSION: 1. The type and distribution of the scintigraphic abnormalities are most consistent with an unchanged nonreversible perfusion defect in the inferoapical , inferior and inferoseptal mike. 2. No new wall motion abnormalities. 3. The left ventricle ejection fraction at stress is 52% (prior EF was 58%). ECHO report 1. Normal left ventricular systolic function. Normal left ventricular cavity size. Normal left ventricular wall thickness. Ejection fraction is visually estimated at 55 %. Tissue Doppler/Mitral Doppler indices are within normal limits. 2. Mild mitral leaflet calcification. Mild mitral annular calcification. Trace mitral regurgitation. 3. Normal appearance of the tricuspid valve. Estimated peak PA systolic pressure 33 mmHg. There is trace tricuspid regurgitation. 4. Pulmonic valve not well visualized. There is trace pulmonic regurgitation. Home Meds Active Scripts Isosorbide Mononitrate* (Isosorbide Mononitrate*) 30 Mg Tab.er.24h, 30 MG PO DAILY for 30 Days, #30 TAB Prov:MEREDITH BLAKE MD 05/13/17 Atorvastatin (Atorvastatin) 10 Mg Tablet, 10 MG PO DAILY@21 for 30 Days, #30 TAB Prov:MEREDITH BLAKE MD 05/13/17 Reported Medications Vitamin B Complex* (Vitamin B Complex*) 1 Each Tablet, 1 TAB PO DAILY, TAB 05/11/17 Cyanocobalamin* (Vitamin B12*) 500 Mcg Tab, 1000 MCG PO DAILY, TAB 05/11/17 Cholecalciferol* (Vitamin D3*) 1,000 Unit Tablet, 1000 UNIT PO DAILY, TAB 05/11/17 Calcium Citrate* (Citracal*) 950 Mg Tab, 950 MG PO DAILY, TAB 05/11/17 [place]-3 Fatty Acids/Fish Oil (Fish Oil 1,000 mg Capsule) 1 Each Capsule, 1 EACH PO BID, CAP 05/11/17 Multivitamins* (Theragran*) 1 Tab Tab, 1 TAB PO DAILY, TAB 05/11/17 Aspirin* (Aspirin* EC) 81 Mg Tablet.dr, 81 MG PO DAILY, TAB 05/11/17 Discontinued Reported Medications Metoprolol Tartrate* (Lopressor*) 25 Mg Tablet, 12.5 MG PO BID, #60 TAB 05/11/17 Simvastatin* (Zocor*) 20 Mg Tablet, 20 MG PO QHS, #30 TAB 05/11/17 Follow-up Plan 1. Take medications as prescribed. Discontinue your Metoprolol and Simvastatin and take Lipitor, Isosorbide, and Aspirin daily 2. Follow up with Dr. Perez and if chest pain reoccurs, return to the ED. 3. Follow a diet rich in fruits and vegetables 4. You were cleared by Cardiology for discharge home. Your studies showed that your heart is pumping normally (normal ejection fraction) and stress test showed only scarring and no ischemia. You should pursue colonoscopy as an outpatient for preventative measures. Primary Care Provider Care Physician No Primary Time spent on discharge: > 30 minutes Pending Labs Laboratory Tests Test 05/13/17 07:23 White Blood Count 6.310^3/ul (4.8-10.8) Red Blood Count 6.0610^6/ul (4.70-6.10) Hemoglobin 15.6g/dl (14.0-18.0) Hematocrit 50.4% (42.0-52.0) Mean Corpuscular Volume 83.2fl (82.0-101.0) Mean Corpuscular Hemoglobin 25.7pg (29.0-33.0) Mean Corpuscular Hemoglobin Concent 31.0g/dl (32.0-37.0) Red Cell Distribution Width 13.6% (11.5-14.5) Platelet Count 53908^3/UL (140-415) Mean Platelet Volume 10.4fl (7.4-10.4) Neutrophils % 47.1% (39.0-77.0) Lymphocytes % 42.7% (15.0-51.0) Monocytes % 7.5% (0.0-11.0) Eosinophils % 1.6% (0.0-7.0) Basophils % 0.8% (0.0-2.0) Nucleated Red Blood Cells % 0.0/100WBC (0.0-0.0) Neutrophils # 3.010^3/ul (1.6-7.5) Lymphocytes # 2.710^3/ul (0.8-2.9) Monocytes # 0.510^3/ul (0.3-0.9) Eosinophils # 0.110^3/ul (0.0-0.5) Basophils # 0.110^3/ul (0.0-0.1) Nucleated Red Blood Cells # 0.010^3/ul (0.0-0.0) Sodium Level 140mmol/L (135-144) Potassium Level 4.7mmol/L (3.5-5.1) Chloride Level 107mmol/L (97-110) Carbon Dioxide Level 28mmol/L (21-31) Anion Gap 10 (8-16) Blood Urea Nitrogen 16mg/dl (7-20) Creatinine 0.85mg/dl (0.61-1.24) Glucose Level 97mg/dl (70-220) Calcium Level 9.6mg/dl (8.4-10.2) Phosphorus Level 3.6mg/dl (2.5-4.9) Magnesium Level 1.9mg/dl (1.7-2.5) Creatine Kinase 920IU/L (23-200) Albumin 4.0g/dl (3.3-4.9) MEREDITH BLAKE MD May 13, 2017 15:23
--- NOTE | 2017-05-13 16:32 | RADRPT ---
Vent Rate: 55 bpm RR Interval: 0 msec OR Interval: 160 msec QRS Duration: 94 msec QT Interval: 404 msec QTC Interval: 386 msec P-R-T [place]: 66 - 73 - 69 degrees Sinus bradycardia Otherwise normal ECG Electronically Signed By: Gerard Frazier [id number]
[2017-05-14] MEDS ORDERED: ISOSORBIDE MONONITRATE(SR)30 MG TAB PO SCH (09:00)
== END 2017-05-13 16:25 | disposition home or self-care (01) | DRG 313 ==
LOC: E/R 21:03 → TEL 05-11 05:37
PROVIDERS: ADMIT Family Medicine; ATTEND Family Medicine
DX: R07.9 Chest pain, unspecified (principal); I10 Essential (primary) hypertension; K92.1 Melena; R00.1 Bradycardia, unspecified; E78.5 Hyperlipidemia, unspecified
CPT/HCPCS: 36415; 71010; 78452; 80053; 80061; 80069; 82270; 82550; 82553; 83036; 83735; 83880; 84443; 84484; 85025; 93005; 93017; 93306; A9500; A9505; J2785; J7030; J7040

== ENCOUNTER 2017-07-19 07:21 | Day surgery (SDC) | payer OTHER ==
[~2017-07-19] VITALS: Ht 188 cm; Wt 98.9 kg
[~2017-07-19 07:21] MED LIST: ASPI-664 PO; ATOR10TA65 PO; CHOL100062 PO; CITRACAL PO; CYAN500T46 PO; ISOS30TA5 PO; MULTI PO; OMEG-135 PO; VIT1TABL46 PO
[2017-07-19 08:56] VITALS: Ht 188 cm; Wt 98.9 kg
[2017-07-19 09:00] VITALS: BP 124/81; PULSE 51; RESP 18
[2017-07-19] MEDS ORDERED: FENTAnyl 50 MCG/ML VIAL ONE (09:05)
[2017-07-19] MEDS ORDERED: PROPOFOL 20 ML ONE (09:05)
[2017-07-19] MEDS ORDERED: MIDAZOLAM 1 MG/ML 2 ML INJ ONE (09:05)
--- NOTE | 2017-07-19 09:33 | OPPN ---
Date/Time of Note Date/Time of Note DATE: 07/19/17 TIME: 09:32 Operative Report Preoperative Diagnosis Screening Postoperative Diagnosis Internal hemorrhoids No colon neoplasm is identified Operation/Procedure Performed Colonoscopy Surgeon see signature line social services assistant None Anesthesia: MAC Estimated blood loss: none Transfusion Required none Specimen None Grafts/Implants none Complications none WANG ENGEL MD Jul 19, 2017 09:33
[2017-07-19 10:09] VITALS: BP 115/73; PULSE 46; RESP 20
--- NOTE | 2017-07-19 12:55 | GILP ---
DATE OF PROCEDURE: NAME OF PROCEDURE: Colonoscopy. SURGEON: Wang Botello MD. PREOPERATIVE DIAGNOSIS: Screening colonoscopy. POSTOPERATIVE DIAGNOSES: 1. Colonoscopy all the way to the cecum. 2. Internal hemorrhoids. 3. No colon neoplasm was identified. INDICATION FOR THE PROCEDURE: Mr. Camden Hercules is a 57-year-old male patient who was scheduled for screening colonoscopy. The procedure and possible complications were well explained to the patient. The patient understood and consented to the procedure. DESCRIPTION OF PROCEDURE: Under the influence of anesthesia, the colonoscope was carefully introduc ed in the rectum and under direct vision, it was advanced all the way to the cecum. FINDINGS: The patient had internal hemorrhoids. No colon neoplasm was identified. He tolerated the procedure very well and there was no complication from the procedure. At the end o f the procedure, he was awake with stable vital signs and he was discharged home to the care of his family. IMPRESSION: Please see postoperative diagnoses. PLAN: Next screening colonoscopy in 10 years. Dictated By: WANG SALINAS/STEPHON Conf#: [id number] DID#: [id number]
== END 2017-07-19 15:46 | disposition home or self-care (01) ==
LOC: GIL 07:21
PROVIDERS: ATTEND Internal Medicine Gastroenterology
DX: Z12.11 Encounter for screening for malignant neoplasm of colon (principal); I25.10 Atherosclerotic heart disease of native coronary artery without angina pectoris; F17.200 Nicotine dependence, unspecified, uncomplicated; K64.8 Other hemorrhoids
CPT/HCPCS: 45378; J2250; J3010; Z7610

== ENCOUNTER 2018-01-30 19:21 | Emergency (ER) | END 2018-01-30 22:14 | disposition home or self-care (01) ==